=== PATIENT | female | born 1965 | race Caucasian/White ===

== ENCOUNTER → 2018-12-14 | Outpatient (CLI) | payer OTHER | LOC: M.RAD 10:56 | DX: Z12.31 Encounter for screening mammogram for malignant neoplasm of breast (principal) ==

== ENCOUNTER → 2018-12-20 | Outpatient (CLI) | payer OTHER | LOC: M.RAD 15:40 | DX: N63.10 Unspecified lump in the right breast, unspecified quadrant (principal) ==

== ENCOUNTER → 2018-12-28 | Outpatient (CLI) | payer OTHER ==
--- NOTE | 2018-12-31 17:06 | PATH ---
[facility] [address] [place] [address] PATHOLOGY RPT PROCEDURE Name: ANGIE QUEZADA Room: [facility] Martel#: [id number] Admission: 12/28/18 Date of : 67 Discharge: Report #: [id number] Path Case #: [id number] [facility] Accession Number: [id number] . 01 Material submitted: . breast - RIGHT BREAST STEREOTACTIC BIOPSY FOR CALCIFICATIONS. Modifiers: right . 01 Clinical history: . Right breast stereotactic biopsy for calcifications . 02 Diagnosis: Right breast calcifications, stereotactic biopsy: - Benign breast tissue with fibrosis and luminal calcification, negative for atypia. See comment. LBQ 12/31/2018 1104 Local . 02 Comment: Reviewed with Dr. Eber Hook who agrees with the diagnosis. (JHONNY/db; 12/31/2018) . 02 Electronically signed: . Paul Pete MD, Pathologist NPI- [id number] . 01 Gross description: . The specimen is received in formalin, labeled "Angie Quezada, right breast calcs". Received is a single needle core of fibrofatty tissue measuring 2.0 cm in length by 0.5 cm in diameter. Also received within the container is a plastic cassette containing two needle cores of fibrofatty tissue measuring 2.0 x 1.8 x 0.5 cm in aggregate dimensions. The suspect tissue is transferred to cassettes A1 and A2, with the remainder of the specimen submitted in cassette A3. The cold ischemic time is 3 minutes. The total formalin fixation time is 13 hours and 12 minutes. (CAA; 12/28/2018) QAC/QAC 12/28/2018 1416 Local . 02 Pathologist provided ICD-10: N60.31 . 02 CPT . 978136 Specimen Comment: A courtesy copy of this report has been sent to Specimen Comment: [phone], , . Specimen Comment: Report sent to ,DR MOE / DR WHITFIELD Performed at: [address] [place] [address] PATHOLOGY RPT PROCEDURE Name: ANGIE QUEZADA [facility] [id number] Admission: 12/28/18 Date of : 67 Discharge: Report #: [id number] Path Case #: [id number] [address], [place], [place] [id number] MD Chinedu Mancilla MD Phone: [phone] Performed at: 02 [facility] [address], [place], [place] [id number] MD Paul Pete MD Phone: [phone]
== END | disposition home or self-care (01) ==
LOC: M.RAD 07:40
DX: R92.1 Mammographic calcification found on diagnostic imaging of breast (principal); N60.31 Fibrosclerosis of right breast

== ENCOUNTER → 2019-12-16 | Outpatient (CLI) | payer OTHER | LOC: M.RAD 09:00 | PROVIDERS: ATTEND Family Medicine | DX: Z12.31 Encounter for screening mammogram for malignant neoplasm of breast (principal) ==

== ENCOUNTER → 2020-12-18 | Outpatient (CLI) | payer OTHER | LOC: M.RAD 12-17 09:20 | PROVIDERS: ATTEND Family Medicine | DX: Z12.31 Encounter for screening mammogram for malignant neoplasm of breast (principal); N64.89 Other specified disorders of breast ==